=== PATIENT | female | born 1980 | race Caucasian/White ===

== ENCOUNTER 2018-08-31 15:17 | Emergency (ER) | payer BC ==
[~2018-08-31] VITALS: Ht 149.9 cm; Wt 90.9 kg
[2018-08-31 15:50] VITALS: BP 165/95
== END 2018-08-31 16:19 | disposition home or self-care (01) ==
LOC: EMS 15:19
DX: K11.20 Sialoadenitis, unspecified (principal); R03.0 Elevated blood-pressure reading, without diagnosis of hypertension

== ENCOUNTER 2019-05-06 16:54 | Emergency (ER) | payer BC ==
[~2019-05-06] VITALS: Ht 149.9 cm; Wt 95.5 kg
[2019-05-06] MEDS ORDERED: KETOROLAC TROMETHAMINE 30 MG/ML VIAL IM ONE (18:15)
[2019-05-06 20:15] VITALS: BP 136/82
== END 2019-05-06 21:15 | disposition home or self-care (01) ==
LOC: EMS 16:55
DX: M79.604 Pain in right leg (principal)
CPT/HCPCS: 81025; 93971; 96374; 99284; J1885